=== PATIENT | male | born 1965 ===

== ENCOUNTER 2021-11-23 13:02 | Inpatient (IN) | payer OTHER ==
[2021-11-23] MEDS ORDERED: Boostrix 0.5 ML (Tdap) VIAL ONE (13:04)
[2021-11-23] MEDS ORDERED: ceFAZolin (BATCH) 2 GM/100 ML BAG ONE (13:04)
[2021-11-23] MEDS ORDERED: Lidocaine 2% Jelly 5 ML TUBE ONE (13:18)
[2021-11-23] MEDS ORDERED: fentaNYL Citrate/PF 100 MCG/2 ML SYRINGE ONE (13:18)
[2021-11-23] MEDS ORDERED: Calcium Gluc 4.6 MEQ/10 ML (100 MG/ML) ONE (13:21)
[2021-11-23 13:22] LABS: #Lymphocytes 0.4 thou/uL (1.20-3.40); #Monocytes 0.5 thou/uL (0.11-0.59); #Neutrophils 11.6 thou/uL (1.40-6.50); %Basophils 0.3 % (0.0-1.0); %Eosinophils 0.3 % (0.0-10.0); %Lymphocytes 3.1 % (21.0-51.0); %Monocytes 3.7 % (0.0-10.0); %Neutrophils 92.5 % (42.0-75.0); Hemoglobin 14.2 g/dL (14.0-18.0); Mean Corpuscular HGB CONC 32.6 g/dL (32.0-36.0); Mean Corpuscular Hemoglobin 28.6 pg (27.0-31.0); Platelet Count 252 thou/uL (130-400); RBC Distribution Width 13.4 % (11.5-14.5); Red Blood Cell (RBC) Count 4.96 mill/uL (4.70-6.10); White Blood Cell (WBC) Count 12.5 thou/uL (4.8-10.8)
[2021-11-23] MEDS ORDERED: hydrALAZINE 20 MG/ML VIAL SLOW IVP PRN (13:23)
[2021-11-23] MEDS ORDERED: Ondansetron PF 4 MG/2 ML Vial IVP PRN (13:23)
[2021-11-23] MEDS ORDERED: Calcium Chloride 1 GM/10 ML Abboject SYRINGE ONE (13:23)
[2021-11-23] MEDS ORDERED: Midazolam HCl 2 mg/2 ml Vial ONE (13:26)
[2021-11-23] MEDS ORDERED: Ketamine 50 MG/ML (10ML VIAL) ONE (13:26)
[2021-11-23] MEDS ORDERED: Sodium Chloride 0.9% 1,000 ML IV SCH ×4 (13:30→19:15)
[2021-11-23 13:31] LABS: PTT 23.6 sec (22.9-36.1)
[2021-11-23 13:32] LABS: INR-International Normal Ratio 1.2
[2021-11-23 13:35] LABS: ALT (SGPT) 13 U/L (8-55); AST (SGOT) 12 U/L (5-34); Alkaline Phosphatase 81 U/L (40-110); Anion Gap 17 mmol/L (10-20); BUN (Urea Nitrogen) 17 mg/dL (8.4-25.7); Bilirubin, Total 1.7 mg/dL (0.2-1.2); Calc. Creatinine Clearance 0 mL/min (70-130); Calcium 9.1 mg/dL (7.8-10.44); Carbon Dioxide 21 mmol/L (22-29); Chloride 97 mmol/L (98-107); Globulin 2.7 g/dL (2.4-3.5); Glucose 177 mg/dL (70-105); Potassium 5.4 mmol/L (3.5-5.1); Protein, Total 6.7 g/dL (6.0-8.3); Sodium 130 mmol/L (136-145)
[2021-11-23] MEDS ORDERED: Vecuronium 10 MG VIAL ONE (13:43)
[2021-11-23] MEDS ORDERED: Succinylcholine 200 MG/10 ml SYRINGE FS ONE (13:43)
[2021-11-23] MEDS ORDERED: Ondansetron PF 4 MG/2 ML Vial ONE (13:43)
[2021-11-23] MEDS ORDERED: Rocuronium Bromide 10 MG/ML (10ML VIAL) ONE (13:43)
[2021-11-23] MEDS ORDERED: Dexamethasone 20 MG/5 ML VIAL ONE (13:43)
[2021-11-23] MEDS ORDERED: Lidocaine 1% PF 5 ML VIAL ONE (13:43)
[2021-11-23] MEDS ORDERED: Phenylephrine 10 MG/ML VIAL ONE (13:58)
[2021-11-23] MEDS ORDERED: Midazolam HCl 5 mg/5 ml Vial ONE (14:44)
[2021-11-23] MEDS ORDERED: Bacitracin Zinc Ointment 30 gm TUBE ONE (15:26)
[2021-11-23] MEDS ORDERED: Dexmedetomidine In 0.9 % NaCl 100 ML IVPB SCH (15:45)
[2021-11-23] MEDS ORDERED: Fentanyl 100 MCG/2 ML VIAL ONE (16:01)
[2021-11-23] MEDS ORDERED: Propofol 1,000 MG/100 ML VIAL IV ONE (16:01)
[2021-11-23 16:14] LABS: #Lymphocytes 0.1 thou/uL (1.20-3.40); #Monocytes 0.1 thou/uL (0.11-0.59); %Eosinophils 0.2 % (0.0-10.0); %Monocytes 1.6 % (0.0-10.0); %Neutrophils 95.2 % (42.0-75.0); Hemoglobin 13.7 g/dL (14.0-18.0); Mean Corpuscular HGB CONC 32.8 g/dL (32.0-36.0); Mean Corpuscular Hemoglobin 29.7 pg (27.0-31.0); Mean Corpuscular Volume 90.6 fL (78.0-98.0); Platelet Count 138 thou/uL (130-400); RBC Distribution Width 13.8 % (11.5-14.5); Red Blood Cell (RBC) Count 4.62 mill/uL (4.70-6.10); White Blood Cell (WBC) Count 4.2 thou/uL (4.8-10.8)
[2021-11-23 16:27] LABS: Lactic Acid 1.8 mmol/L (0.5-2.2)
[2021-11-23 16:27] LABS: Actual Bicarbonate (HCO3a) 21.4 mEq/L (22-28); Base Excess (BEa) -4.1 mEq/L (-2.0 to +3.0); CO2 Tension 40.6 mmHg (35.0-45.0); Carboxyhemoglobin (COHb) 0.8 gm% (0.0-3.0); Hemoglobin (Hb) 14.5 g/dL (14.0-18.0); O2 Tension (PaO2), arterial 86.4 mmHg (80.0-100.0); Potassium - ABG Lab 3.94 mmol/L (3.70-5.30); pH, Arterial 7.34 (7.35-7.45)
[2021-11-23 16:29] LABS: Puncture Site LBA
[2021-11-23 16:31] LABS: Anion Gap 12 mmol/L (10-20); BUN (Urea Nitrogen) 17 mg/dL (8.4-25.7); Calc. Creatinine Clearance 0 mL/min (70-130); Calcium 8.5 mg/dL (7.8-10.44); Carbon Dioxide 20 mmol/L (22-29); Chloride 105 mmol/L (98-107); Glucose 117 mg/dL (70-105); Phosphorus 2.7 mg/dL (2.3-4.7); Potassium 4.1 mmol/L (3.5-5.1); Sodium 133 mmol/L (136-145)
[2021-11-23 16:43] VITALS: BMI 31.6
[2021-11-23] MEDS ORDERED: fentaNYL Citrate-0.9 % NaCl/PF 100 ML IV PRN (16:55)
[2021-11-23] MEDS: Sodium Chloride 0.9% 1,000 ML IV SCH ×2 (17:00→21:27)
[2021-11-23] MEDS ORDERED: Acetaminophen 325 MG/10.15 ML UDCUP PO SCH (17:00)
[2021-11-23] MEDS: Dexamethasone 10 MG in Sodium Chloride 0.9% 50 ML IVPB SCH (18:13)
[2021-11-23] MEDS ORDERED: Calcium Chloride 1 GM/10 ML Abboject SYRINGE IVP SCH (19:30)
[2021-11-23 19:53] LABS: #Lymphocytes 0.2 thou/uL (1.20-3.40); #Monocytes 0.2 thou/uL (0.11-0.59); #Neutrophils 5.6 thou/uL (1.40-6.50); %Basophils 0.2 % (0.0-1.0); %Eosinophils 0.2 % (0.0-10.0); %Lymphocytes 3.3 % (21.0-51.0); %Monocytes 3.2 % (0.0-10.0); %Neutrophils 93.2 % (42.0-75.0); Hemoglobin 11.4 g/dL (14.0-18.0); Mean Corpuscular HGB CONC 33.2 g/dL (32.0-36.0); Mean Corpuscular Volume 90.4 fL (78.0-98.0); Mean Platelet Volume 6.9 fL (7.4-10.4); Platelet Count 103 thou/uL (130-400); RBC Distribution Width 13.6 % (11.5-14.5)
[2021-11-23] MEDS ORDERED: Hydrocortisone Sod Succ/PF 100 mg/2 ml Vial IVP SCH (20:00)
[2021-11-23 20:03] LABS: INR-International Normal Ratio 1.6; PTT 36.9 sec (22.9-36.1); Prothrombin Time 18.9 sec (12.0-14.7)
[2021-11-23] MEDS ORDERED: Norepinephrine 8 MG/0.9% NS 250 ML IVPB SCH (20:15)
[2021-11-23] MEDS: CEFAZOLIN 1 GM in Sodium Chloride 0.9% 100 ML IVPB SCH (21:26)
[2021-11-23 22:39] LABS: #Lymphocytes 0.2 thou/uL (1.20-3.40); #Monocytes 0.2 thou/uL (0.11-0.59); #Neutrophils 5.9 thou/uL (1.40-6.50); %Eosinophils 0.3 % (0.0-10.0); %Lymphocytes 2.9 % (21.0-51.0); %Monocytes 2.7 % (0.0-10.0); %Neutrophils 94.1 % (42.0-75.0); Hemoglobin 10.5 g/dL (14.0-18.0); Mean Corpuscular HGB CONC 33.4 g/dL (32.0-36.0); Mean Corpuscular Hemoglobin 30.3 pg (27.0-31.0); Mean Corpuscular Volume 90.7 fL (78.0-98.0); Mean Platelet Volume 6.8 fL (7.4-10.4); Platelet Count 97 thou/uL (130-400); RBC Distribution Width 13.7 % (11.5-14.5); Red Blood Cell (RBC) Count 3.47 mill/uL (4.70-6.10); White Blood Cell (WBC) Count 6.3 thou/uL (4.8-10.8)
[2021-11-23] MEDS: Acetaminophen 500 MG TAB PO SCH (23:47)
[2021-11-24] MEDS: Dexamethasone 10 MG in Sodium Chloride 0.9% 50 ML IVPB SCH ×2 (00:02→06:10)
[2021-11-24] MEDS ORDERED: Hydrocortisone Sod Succ/PF 100 mg/2 ml Vial IVP SCH (02:00)
[2021-11-24 03:56] LABS: #Lymphocytes 0.2 thou/uL (1.20-3.40); #Monocytes 0.1 thou/uL (0.11-0.59); #Neutrophils 4.7 thou/uL (1.40-6.50); %Basophils 0.2 % (0.0-1.0); %Eosinophils 0.1 % (0.0-10.0); %Lymphocytes 3.4 % (21.0-51.0); %Monocytes 2.2 % (0.0-10.0); %Neutrophils 94.1 % (42.0-75.0); Hemoglobin 9.9 g/dL (14.0-18.0); Mean Corpuscular HGB CONC 33.6 g/dL (32.0-36.0); Mean Corpuscular Hemoglobin 30.3 pg (27.0-31.0); Mean Platelet Volume 7.2 fL (7.4-10.4); Platelet Count 112 thou/uL (130-400); RBC Distribution Width 13.9 % (11.5-14.5); Red Blood Cell (RBC) Count 3.28 mill/uL (4.70-6.10)
[2021-11-24 03:59] LABS: INR-International Normal Ratio 1.5; PTT 31.8 sec (22.9-36.1)
[2021-11-24 04:22] LABS: Anion Gap 10 mmol/L (10-20); BUN (Urea Nitrogen) 17 mg/dL (8.4-25.7); Calc. Creatinine Clearance 122 mL/min (70-130); Calcium 8.4 mg/dL (7.8-10.44); Carbon Dioxide 23 mmol/L (22-29); Chloride 105 mmol/L (98-107); Glucose 146 mg/dL (70-105); Magnesium 1.5 mg/dL (1.6-2.6); Potassium 4.4 mmol/L (3.5-5.1); Sodium 134 mmol/L (136-145)
[2021-11-24 04:49] LABS: Phosphorus 3.3 mg/dL (2.3-4.7)
[2021-11-24] MEDS: CEFAZOLIN 1 GM in Sodium Chloride 0.9% 100 ML IVPB SCH (06:09)
[2021-11-24] MEDS: Sodium Chloride 0.9% 1,000 ML IV SCH (06:09)
[2021-11-24] MEDS: Acetaminophen 500 MG TAB PO SCH ×3 (06:10→17:31)
[2021-11-24] MEDS ORDERED: Sodium Chloride 0.9% 1,000 ML IV SCH (06:26)
[2021-11-24] MEDS ORDERED: Magnesium 2 GM/50 ML(in water) 4 GM in Premix Bag 1 BAG IVPB SCH (06:30)
[2021-11-24 07:14] LABS: Base Excess (BEa) -4.3 mEq/L (-2.0 to +3.0); CO2 Tension 33.8 mmHg (35.0-45.0); Calcium, Ionized (arterial) 1.19 mmol/L (1.12-1.30); Carboxyhemoglobin (COHb) 0.3 gm% (0.0-3.0); Hemoglobin (Hb) 11.7 g/dL (14.0-18.0); O2 Tension (PaO2), arterial 125.9 mmHg (80.0-100.0); pH, Arterial 7.39 (7.35-7.45)
[2021-11-24 07:28] LABS: Puncture Site RBA
[2021-11-24] MEDS ORDERED: Electrolyte Replacement Protocol 1 EACH FS ONE (08:28)
[2021-11-24] MEDS ORDERED: Morphine 2 MG/ML VIAL SLOW IVP PRN (08:50)
[2021-11-24] MEDS: Famotidine/PF 20 mg/2ml Vial SLOW IVP SCH ×2 (08:51→21:05)
[2021-11-24] MEDS ORDERED: Electrolyte Replacement Protocol FS PRN (09:00)
[2021-11-24] MEDS: ceFAZolin (BATCH) 2 GM in Premix Bag 1 BAG IVPB SCH ×3 (09:28→21:05)
[2021-11-24 10:26] LABS: SARS-CoV-2 NAA Rapid Test Not Detected (NotDetected)
[2021-11-24] MEDS: DULoxetine 30 MG CAP PO SCH ×2 (11:04→21:05)
[2021-11-24] MEDS: traMADol HCl 50 MG TAB PO SCH ×2 (13:30→17:31)
[2021-11-24] MEDS ORDERED: traMADol HCl 50 MG TAB PO PRN (13:40)
[2021-11-24] MEDS: Ibuprofen 200 MG TAB PO SCH (16:50)
[2021-11-25] MEDS: Ibuprofen 200 MG TAB PO SCH ×3 (00:31→14:00)
[2021-11-25] MEDS: Acetaminophen 500 MG TAB PO SCH ×4 (00:31→18:03)
[2021-11-25] MEDS: traMADol HCl 50 MG TAB PO SCH ×4 (03:06→18:03)
[2021-11-25 05:43] LABS: #Lymphocytes 1.1 thou/uL (1.20-3.40); #Monocytes 0.6 thou/uL (0.11-0.59); #Neutrophils 3.6 thou/uL (1.40-6.50); %Basophils 0.7 % (0.0-1.0); %Eosinophils 0.7 % (0.0-10.0); %Lymphocytes 19.9 % (21.0-51.0); %Monocytes 10.6 % (0.0-10.0); %Neutrophils 68.1 % (42.0-75.0); Hemoglobin 10.3 g/dL (14.0-18.0); Mean Corpuscular HGB CONC 32.6 g/dL (32.0-36.0); Mean Corpuscular Hemoglobin 29.9 pg (27.0-31.0); Mean Corpuscular Volume 91.5 fL (78.0-98.0); Mean Platelet Volume 7.7 fL (7.4-10.4); Platelet Count 122 thou/uL (130-400); RBC Distribution Width 13.8 % (11.5-14.5); Red Blood Cell (RBC) Count 3.46 mill/uL (4.70-6.10); White Blood Cell (WBC) Count 5.3 thou/uL (4.8-10.8)
[2021-11-25] MEDS ORDERED: Magnesium 2 GM/50 ML(in water) 4 GM in Premix Bag 1 BAG IVPB SCH (07:00)
[2021-11-25] MEDS ORDERED: Magnesium 2 GM/50 ML(in water) 2 GM in Premix Bag 1 BAG IVPB SCH (08:00)
[2021-11-25] MEDS: DULoxetine 30 MG CAP PO SCH (08:44)
[2021-11-25] MEDS: Famotidine/PF 20 mg/2ml Vial SLOW IVP SCH (08:44)
[2021-11-25 22:03] VITALS: BP 162/85; TEMP 98.6
== END 2021-11-25 20:30 | DRG 500 ==
LOC: ERS 13:02 → SDC 13:32 → EEVIPCON 13:32 → CCU 13:33 → SURG A 11-24 18:33
PROVIDERS: ADMIT Surgery; ATTEND Surgery
PROC: 0KQB0ZZ Repair Left Lower Arm and Wrist Muscle, Open Approach (ICD-10-PCS; principal; 2021-11-23)
PROC: 0KQ90ZZ Repair Right Lower Arm and Wrist Muscle, Open Approach (ICD-10-PCS; 2021-11-23)
PROC: 30233N1 Transfusion of Nonautologous Red Blood Cells into Peripheral Vein, Percutaneous Approach (ICD-10-PCS; 2021-11-23)
PROC: 30233M1 Transfusion of Nonautologous Plasma Cryoprecipitate into Peripheral Vein, Percutaneous Approach (ICD-10-PCS; 2021-11-23)
PROC: 6A550Z2 Pheresis of Platelets, Single (ICD-10-PCS; 2021-11-23)
PROC: 30233K1 Transfusion of Nonautologous Frozen Plasma into Peripheral Vein, Percutaneous Approach (ICD-10-PCS; 2021-11-23)
PROC: 06HY33Z Insertion of Infusion Device into Lower Vein, Percutaneous Approach (ICD-10-PCS; 2021-11-23)
PROC: 0KQ20ZZ Repair Right Neck Muscle, Open Approach (ICD-10-PCS; 2021-11-23)
DX: S56.922A Laceration of unspecified muscles, fascia and tendons at forearm level, left arm, initial encounter (principal); Z20.822 Contact with and (suspected) exposure to COVID-19; Z23 Encounter for immunization; J96.00 Acute respiratory failure, unspecified whether with hypoxia or hypercapnia; D65 Disseminated intravascular coagulation [defibrination syndrome]; R57.1 Hypovolemic shock; R57.8 Other shock; S56.921A Laceration of unspecified muscles, fascia and tendons at forearm level, right arm, initial encounter; S16.2XXA Laceration of muscle, fascia and tendon at neck level, initial encounter; S01.512A Laceration without foreign body of oral cavity, initial encounter; F31.9 Bipolar disorder, unspecified; I10 Essential (primary) hypertension; X78.1XXA Intentional self-harm by knife, initial encounter; Z53.8 Procedure and treatment not carried out for other reasons; R00.1 Bradycardia, unspecified; Z78.1 Physical restraint status; Z79.899 Other long term (current) drug therapy
CPT/HCPCS: 36415; 36430; 36556; 36600; 71045; 80048; 80053; 82533; 82550; 82805; 83605; 83735; 84100; 85025; 85384; 85610; 85730; 86850; 86900; 86901; 90471; 90715; 94002; 94003; 96365; 96375; C1713; C1776; G0390; J0610; J0690; J1100; J1720; J2250; J2270; J2370; J2405; J2704; J3475; J3490; J7050; P9012; P9016; P9035; P9045; P9048; P9059; S0028; U0002